=== PATIENT | female | born 1990 | race Two or more races ===

== ENCOUNTER 2021-06-12 12:26 | Emergency (ER) | payer OTHER ==
[~2021-06-12] VITALS: Ht 157.5 cm; Wt 52.2 kg
[2021-06-12] MEDS ORDERED: ONDANSETRON 4 MG TAB.RAPDIS ONE (13:31)
[2021-06-12] MEDS ORDERED: ACETAMINOPHEN 325 MG TABLET ONE (13:31)
[2021-06-12] MEDS: ACETAMINOPHEN 325 MG TABLET PO ONE (13:34)
[2021-06-12] MEDS: ONDANSETRON 4 MG TAB.RAPDIS SL ONE (13:34)
[2021-06-12] MEDS ORDERED: ONDA4TAB5 PO (14:17)
[2021-06-12] MEDS ORDERED: ACET-2605 PO (14:17)
[2021-06-12] MEDS ORDERED: NALO4SPR NS (14:17)
[2021-06-12 14:38] VITALS: BP 117/77
--- NOTE | 2021-06-12 14:38 | NUR ---
Patient left via ambulatory accompanied by [employer] in no distress.
== END 2021-06-12 14:38 ==
LOC: ER 12:32
DX: F11.23 Opioid dependence with withdrawal (principal); R51.9 Headache, unspecified; R11.0 Nausea; F41.9 Anxiety disorder, unspecified
CPT/HCPCS: 99283; Q0162